=== PATIENT | female | born 1955 | race Caucasian/White ===

== ENCOUNTER 2021-03-01 07:50 | Outpatient (CLI) | payer BC, SELFPAY ==
--- NOTE | ~2021-03-01 | PE_ITS ---
EXAMINATION: PET skull to mid thigh DATE: 03/01/2021 09:48 INDICATION: Small cell lung cancer TECHNIQUE: Blood glucose level was 85 mg/dL. 9.314 mCi of 18-fluorodeoxyglucose (18-FDG) was administ ered i.v. Low dose computed tomography (CT) images were acquired from the base of the brain to the pr oximal thighs for attenuation correction and anatomic localization. Positron emission tomography (PET ) images were acquired in the same distribution beginning 54 minutes after injection. The dose-length product (DLP) was 250.58 mGy-cm. COMPARISON: None FINDINGS: Head/neck: No abnormal FDG uptake is identified. FDG activity in the vocal cords and right sternoclei domastoid muscle without suspicious CT correlate is likely physiologic. Chest: No abnormal FDG uptake is identified. Calcified pulmonary nodules and calcified left hilar lym ph nodes are consistent with old granulomatous disease. There is a 7 mm subsolid nodule of the right lung apex without significant FDG uptake on image 192. There are two adjacent 7 mm nodules in the lef t upper lobe without significant FDG uptake (images 261 and 267). No pathologically enlarged thoracic lymph nodes are identified. The heart size is normal. Abdomen/pelvis/proximal thighs: No abnormal FDG uptake is identified. Physiologic FDG activity is pre sent in the bowel and urinary tract. Punctate calcifications in an otherwise normal spleen likely rep resent healed granulomatous disease. Within the limitations of noncontrast examination, the spleen, p ancreas, gallbladder, adrenal glands, and kidneys are normal. No pathologically enlarged abdominal or pelvic lymph nodes are identified. There is no free intraperitoneal gas or evidence of bowel obstruc tion. There is liquid stool throughout the colon to the level of the rectum. Musculoskeletal: There are widespread sclerotic osseous lesions throughout the spine, ribs, and pelvi s. None demonstrate associated FDG uptake. There are pathologic fractures of the T5 and T11 vertebral bodies. IMPRESSION: 1. Widespread osseous metastatic disease without significant FDG uptake. 2. Bilateral indeterminate upper lobe lung nodules without FDG uptake which could be due to their sma ll size. Reviewed, dictated and finalized at location B. [facility] [employer] IMPRESSION: 1. Widespread osseous metastatic disease without significant FDG uptake. 2. Bilateral indeterminate upper lobe lung nodules without FDG uptake which cou ld be due to their small size.
[2021-03-01 08:23] LABS: Glucose Point of Care 85 mg/dl (65-105)
== END 2021-03-01 07:51 | disposition home or self-care (01) ==
LOC: ANHIMG 07:52
PROVIDERS: PCP Internal Medicine; Visit Provider Internal Medicine Medical Oncology
DX: C34.91 Malignant neoplasm of unspecified part of right bronchus or lung (principal); C79.51 Secondary malignant neoplasm of bone
CPT/HCPCS: 78815; A9552